=== PATIENT | male | born 1995 | race African-American/Black ===

== ENCOUNTER 2023-07-17 21:01 | Emergency (ER) | payer OTHER ==
[~2023-07-17] VITALS: Ht 175.3 cm; Wt 91.0 kg
[2023-07-17 21:13] VITALS: BP 133/92; PULSE 110; RESP 16; TEMP 98; O2SAT 99
== END 2023-07-17 21:50 | disposition left against medical advice (07) ==
LOC: ER 21:01
DX: F41.0 Panic disorder [episodic paroxysmal anxiety] (principal); Z53.21 Procedure and treatment not carried out due to patient leaving prior to being seen by health care provider